=== PATIENT | male | born 1980 | race Caucasian/White ===

== ENCOUNTER 2022-01-06 19:30 | Emergency (ER) | payer BC ==
[~2022-01-06 19:30] MED LIST: Ketorolac 30 MG/ML SDV ONE
[2022-01-06] MEDS ORDERED: Sodium Chloride 0.9% 10 ML Syringe FLUSH PRN (19:44)
[2022-01-06] MEDS ORDERED: Ketorolac 30 MG/ML SDV IVPUSH ONE (19:53)
[2022-01-06] MEDS ORDERED: Orphenadrine 60 MG/2 ML Inj ONE (20:00)
[2022-01-06] MEDS ORDERED: Sodium Chloride 0.9% 1,000 ML IV ONE (20:10)
[2022-01-06] MEDS ORDERED: Ondansetron 4 MG/2 ML SDV IVPUSH ONE (20:12)
[2022-01-06 20:29] LABS: CHLORIDE,CL 103 mEq/L (98-106); SODIUM,NA 144 mEq/L (136-145)
== END 2022-01-06 21:02 | disposition left against medical advice (07) ==
LOC: CC.ED 19:30
DX: S43.004A Unspecified dislocation of right shoulder joint, initial encounter (principal); X50.1XXA Overexertion from prolonged static or awkward postures, initial encounter; Y93.53 Activity, golf
CPT/HCPCS: 24600; 36415; 73030-RT; 80048; 80307; 85025; 96374; 99283-25; J1885